=== PATIENT | male | born 1945 | race Caucasian/White ===

== ENCOUNTER 2021-12-11 09:30 | Outpatient (CLI) | payer MEDICARE, BC ==
[2021-12-11 10:38] LABS: BASOPHILS % (AUTO) 0.6 % (0-1); EOSINOPHILS # (AUTO) 0.1 X10'3 (0-0.9); EOSINOPHILS % (AUTO) 0.9 % (0-6); HEMATOCRIT 45.2 % (42.0-52.0); LYMPHOCYTES # (AUTO) 1.7 X10'3 (1.1-4.8); LYMPHOCYTES % (AUTO) 26.1 % (21-51); MEAN CORPUSCULAR HEMOGLOBIN 30.6 PG (27.0-31.0); MEAN CORPUSCULAR HGB CONC 33.1 g/dL (33.0-36.5); MEAN CORPUSCULAR VOLUME 92.5 FL (78-98); MEAN PLATELET VOLUME 8.6 FL (7.4-10.4); MONOCYTES # (AUTO) 0.4 X10'3 (0-0.9); MONOCYTES % (AUTO) 6.9 % (2-12); NEUTROPHILS # (AUTO) 4.2 X10'3 (1.8-7.7); NEUTROPHILS % (AUTO) 65.5 % (42-75); PLATELET COUNT 166 X10'3 (140-440); RED BLOOD COUNT 4.89 X10'6 (4.70-6.10); RED CELL DISTRIBUTION WIDTH 14.1 % (11.5-14.5); WHITE BLOOD COUNT 6.3 X10'3 (4.5-11.0)
[2021-12-11 10:40] LABS: APTT 30 SECONDS (22-32)
[2021-12-11 10:42] LABS: ALANINE AMINOTRANSFERASE 40 U/L (12-78); ALBUMIN 4.2 G/DL (3.4-5.0); ALBUMIN/GLOBULIN RATIO 1.2 (1.1-1.5); ALKALINE PHOSPHATASE 76 IU/L (46-116); ANION GAP 5 (8-16); ASPARTATE AMINO TRANSFERASE 27 U/L (10-37); BILIRUBIN,TOTAL 0.4 MG/DL (0.1-1.0); BLOOD UREA NITROGEN 25 MG/DL (7-18); BUN/CREATININE RATIO 25.5 (5.4-32.0); CALCIUM 9.6 MG/DL (8.5-10.1); CHLORIDE 103 MMOL/L (99-107); CREATININE 0.98 MG/DL (0.60-1.10); GLUCOSE 139 MG/DL (70-104); POTASSIUM 4.3 MMOL/L (3.5-5.1); SODIUM 140 MMOL/L (135-145); TOTAL CARBON DIOXIDE 31.7 MMOL/L (24-32); TOTAL PROTEIN 7.8 G/DL (6.4-8.2); eGFR 75 ML/MIN
[2021-12-11] MEDS ORDERED: IODIXANOL 320 MG/ML INFUS..BTL 100ML IV ONE (11:54)
[2021-12-11] MEDS ORDERED: MESSAGE TO NURSING PO NR (12:19)
== END 2021-12-11 23:59 | disposition home or self-care (01) ==
LOC: RAD 09:30
PROVIDERS: ATTEND Internal Medicine Cardiovascular Disease
DX: Z01.818 Encounter for other preprocedural examination (principal); I65.23 Occlusion and stenosis of bilateral carotid arteries; I70.0 Atherosclerosis of aorta; K76.0 Fatty (change of) liver, not elsewhere classified; K57.30 Diverticulosis of large intestine without perforation or abscess without bleeding; N28.1 Cyst of kidney, acquired; K40.20 Bilateral inguinal hernia, without obstruction or gangrene, not specified as recurrent; M47.817 Spondylosis without myelopathy or radiculopathy, lumbosacral region; M43.17 Spondylolisthesis, lumbosacral region; Q25.46 Tortuous aortic arch; I25.10 Atherosclerotic heart disease of native coronary artery without angina pectoris; I35.0 Nonrheumatic aortic (valve) stenosis; Z96.612 Presence of left artificial shoulder joint; Z79.899 Other long term (current) drug therapy
CPT/HCPCS: 36415; 71046; 71275; 74174; 80053; 85025; 85610; 85730; 93880; 94010; 94727; 94729; J3490; Q9967

== ENCOUNTER 2022-01-23 05:18 | Inpatient (IN) | payer MEDICARE, BC ==
[2022-01-20 11:51] LABS: BASOPHILS % (AUTO) 0.4 % (0-1); EOSINOPHILS % (AUTO) 0.6 % (0-6); LYMPHOCYTES # (AUTO) 1.7 X10'3 (1.1-4.8); LYMPHOCYTES % (AUTO) 26.5 % (21-51); MEAN CORPUSCULAR HEMOGLOBIN 31.3 PG (27.0-31.0); MEAN PLATELET VOLUME 8.6 FL (7.4-10.4); MONOCYTES # (AUTO) 0.5 X10'3 (0-0.9); MONOCYTES % (AUTO) 7.6 % (2-12); NEUTROPHILS # (AUTO) 4.1 X10'3 (1.8-7.7); NEUTROPHILS % (AUTO) 64.9 % (42-75); PRE OP HEMATOCRIT 46.9 % (42.0-52.0); PRE OP HEMOGLOBIN 15.9 g/dL (14.0-17.9); PRE OP PLATELET COUNT 186 X10'3 (140-440); RED BLOOD COUNT 5.09 X10'6 (4.70-6.10); RED CELL DISTRIBUTION WIDTH 13.6 % (11.5-14.5)
[2022-01-20 12:01] LABS: CLARITY,URINE SLIGHTLY CLOUDY (Clear); COLOR,URINE YELLOW (Yellow); GLUCOSE, URINE >=1000 mg/dl (Neg); KETONES,URINE NEGATIVE (Neg); LEUKOCYTE ESTERASE ,URINE NEGATIVE (Neg); NITRITES, URINE POSITIVE (Neg); OCCULT BLOOD,URINE NEGATIVE (Neg); PROTEIN,URINE NEGATIVE (Neg); UROBILINOGEN,URINE 0.2 E.U/dL (0.2-1.0)
[2022-01-20 12:03] LABS: UA COLLECTION TYPE NON-SPECIFIED
[2022-01-20 12:05] LABS: PRE OP INR 1.1 INR; PRE OP PROTIME 10.9 SECONDS (9.0-12.0)
[2022-01-20 12:08] LABS: BACTERIA,URINE 4+ /HPF (Neg); RBC,URINE NONE SEEN /HPF (0-2); SQUAMOUS EPITHELIAL CELL,UR NONE SEEN /LPF (FEW); WBC CLUMPS,URINE MODERATE /HPF (NEGATIVE)
[2022-01-20 12:15] LABS: ALBUMIN 4.4 G/DL (3.4-5.0); ALBUMIN/GLOBULIN RATIO 1.2 (1.1-1.5); ALKALINE PHOSPHATASE 67 IU/L (46-116); BLOOD UREA NITROGEN 28 MG/DL (7-18); BUN/CREATININE RATIO 30.1 (5.4-32.0); CALCIUM 9.9 MG/DL (8.5-10.1); CHLORIDE 99 MMOL/L (99-107); CREATININE 0.93 MG/DL (0.60-1.10); HEMOGLOBIN A1C 7.3 % (4.5-6.2); PRE OP ALT 34 U/L (30-65); PRE OP ANION GAP 8 (8-16); PRE OP AST 26 U/L (10-37); PRE OP BILIRUB, TOTAL 0.4 MG/DL (0.0-1.0); PRE OP GLUCOSE 118 MG/DL (70-104); PRE OP POTASSIUM 3.9 MMOL/L (3.4-5.1); PRE OP SODIUM 136 MMOL/L (135-145); TOTAL CARBON DIOXIDE 29.1 MMOL/L (24-32); TOTAL PROTEIN 8.2 G/DL (6.4-8.2); eGFR 79 ML/MIN
[2022-01-23] VITALS (23 sets, daily range): BP systolic 111–145; BP diastolic 43–82
[~2022-01-23] VITALS: Ht 167.6 cm; Wt 74.9 kg
[~2022-01-23 05:18] MED LIST: ASCO-134 PO; BENA10TA74 PO; CANA300T PO; CYAN50003 PO; METF-438 PO; MULT-1085 PO; ROSU40TA PO; UBID300C3 PO; ringers solution, lacted 1,000 ML IV SCH
[2022-01-23] MEDS ORDERED: phenylephrine inj 50 MG in normal saline 250ml IV solN IV SCH (05:30)
[2022-01-23] MEDS ORDERED: ceFAZolin inj. 2,000 MG in dextrose 5%-water 100 ML IV ONE (05:30)
[2022-01-23] MEDS ORDERED: famotidine 20mg tablet PO ONE (05:30)
[2022-01-23] MEDS ORDERED: vancomycin 1,500 MG in NS 300ml IV soln IV ONE (05:30)
[2022-01-23] MEDS ORDERED: aspirin 325mg tablet PO ONE (05:30)
[2022-01-23] MEDS ORDERED: ondansetron/PF 4mg/2ml inj IV PRN ×2 (05:30→08:15)
[2022-01-23] MEDS ORDERED: nitroPRUSSIDE (NIPRIDE) (200MCG/ML) 100ML Drip IV SCH (05:30)
[2022-01-23] MEDS ORDERED: protamine sulfate 10mg/ml inj. ONE (06:19)
[2022-01-23] MEDS ORDERED: LIDOcaine 1% 30ml preserv. free vial ONE (06:33)
[2022-01-23] MEDS ORDERED: iohexol 350MG/ML 100ml bottle IV ONE (06:33)
[2022-01-23] MEDS ORDERED: heparin 1,000 UNITS/NS 500ml 1,500 ML ONE (06:35)
[2022-01-23] MEDS ORDERED: midazolam 1 mg/ML 2ml injection ONE ×2 (06:41→07:47)
[2022-01-23] MEDS ORDERED: fentaNYL/PF 50MCG/1 ML 2ML syringe ONE (06:41)
[2022-01-23] MEDS ORDERED: propofol inj 20 ML IV ONE (08:11)
[2022-01-23] MEDS ORDERED: heparin 1,000unit/ml 10ml vial 10 ML ONE (08:11)
[2022-01-23] MEDS ORDERED: LIDOcaine 1%/PF 5ML 10 MG/ML VIAL ONE (08:11)
[2022-01-23] MEDS ORDERED: glucagon, human recombinant 1mg kit SUBCUT PRN (08:15)
[2022-01-23] MEDS ORDERED: labetalol 20mg/4ml (5mg/ml) syringe IV PRN (08:15)
[2022-01-23] MEDS ORDERED: magnesium 4gm in 100ml NS 100 ML IV PRN (08:15)
[2022-01-23] MEDS: normal saline 1000ml 1,000 ML IV SCH ×2 (08:15→11:32)
[2022-01-23] MEDS ORDERED: magnesium 2GM in 50ml NS 50 ML IV PRN (08:15)
[2022-01-23] MEDS ORDERED: hydrALAZINE 20mg/ml inj. IV PRN (08:15)
[2022-01-23] MEDS ORDERED: potassium Cl 20 mEq SR tablet PO PRN (08:15)
[2022-01-23] MEDS ORDERED: dextrose 50%-water 50ml dispensing syringe IV PRN ×2 (08:15)
[2022-01-23] MEDS ORDERED: pantoprazole 40mg Tablet.DR PO PRN (08:15)
[2022-01-23] MEDS ORDERED: diphenhydrAMINE 25mg capsule PO PRN (08:15)
[2022-01-23] MEDS ORDERED: insulin Lispro (HumaLOG) vial - multi-dose SQ SCH (08:15)
[2022-01-23] MEDS ORDERED: docusate sod 100mg capsule PO PRN (08:15)
[2022-01-23] MEDS ORDERED: potassium Cl 40MEQ/270ML bag 250 ML IV PRN (08:15)
[2022-01-23] MEDS ORDERED: potassium Cl 40MEQ/1/2NS 520ml 520 ML IV PRN (08:15)
[2022-01-23] MEDS ORDERED: acetaminophen 325mg tablet PO PRN (08:15)
[2022-01-23] MEDS ORDERED: MESSAGE TO PHARMACY PO ONE (08:15)
[2022-01-23] MEDS ORDERED: DEXTROSE 15 GM of carb/4 tabs (each vial/BOTTLE has 4 tablets) PO PRN ×2 (08:15)
[2022-01-23] MEDS ORDERED: proCHLORperazine 10 MG/2 ml inj IV PRN (08:15)
[2022-01-23] MEDS ORDERED: ALPRAZolam 0.25mg tablet PO PRN (08:15)
[2022-01-23] MEDS ORDERED: potassium Cl 20mEq/100mL bag 100 ML IV PRN (08:15)
[2022-01-23] MEDS ORDERED: potassium CL 10mEq/100ml bag 100 ML IV PRN (08:15)
--- NOTE | 2022-01-23 08:19 | NUR ---
Received from OR via , accompanied by Anesthesiologist WES AND OR NURSE and report given by Anesthesiolgist. PT IS A/O X4, DENIES PAIN OR DISCOMFORT. BILATERAL GROIN DRESSINGS/CDI. DISTAL PULSES WNL. ART LINE TO LEFT WRIST; ZEROED. VITALS WNL. Addendum: 01/23/22 at 0849 by Rohini Alarcon RN Amended: Links added.
--- NOTE | 2022-01-23 10:04 | NUR ---
Patient in room PCU 3024. I have received report from Mavis MURPHY and had the opportunity to ask questions and assume patient care. Will follow care of Pt with ALBERT PEARCE. Pt settled into room. [facility] drsg CDI. Addendum: 01/23/22 at 1022 by Diamante Sommer RN Amended: Links added.
--- NOTE | 2022-01-23 10:09 | NUR ---
Report called to receiving nurse. Transferred via BED ON PACY MONITOR TO PCU WITH ONE BAG OF Belongings . NURSE AT BEDSIDE TO RECIEVE PT. PT DENIES PAIN OR DISCOMFORT. ART LINE D/C WITHOUT COMPLICATION. VSS Special Issues communicated to receiving nurse. Addendum: 01/23/22 at 1304 by Rohini Alarcon RN Amended: Links added.
--- NOTE | 2022-01-23 10:22 | NUR ---
Pt arrived to unit. 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 Denies pain. no distress. Groin acces sites x 2 L/R CDI. No bleeding. No hematomas. No flank pain. Pedal pulses palbable x 2. BUE palpable pulses x 2. hands are cool. Warm blankets provided. 129/72, hr 62, RR 18, afebrile, [id number]%. urinal provided. pt has cellphone, director [employer], incentive spirometer, and clothings bag. Addendum: 01/23/22 at 1032 by Cesar Urena LVN Amended: Links added.
[2022-01-23] MEDS ORDERED: insulin regular, human U-100 3ml vial - multi-dose SQ SCH (10:40)
[2022-01-23] MEDS ORDERED: CANA300T PO (10:48)
[2022-01-23] MEDS ORDERED: METF-438 PO (10:48)
[2022-01-23] MEDS ORDERED: ASPI-1265 PO (12:20)
--- NOTE | 2022-01-23 14:20 | NUR ---
Pt able to tolerate reverse trendleberg -8 degrees. At approximately 1420hrs, Pt has half a quarter size sanguineous drainage noted. sand bag applied. reduced degrees to -4.
--- NOTE | 2022-01-23 15:05 | NUR ---
Pt drainage increased 2cm diameter from previous drainage. Marked. additional sand bag applied. decreased position to lying Addendum: 01/23/22 at 1506 by Cesar Urena LVN Decreased position to lying flat. Pt has no pain at this time.
[2022-01-23] MEDS: ceFAZolin 1GM/D5W- ADD-VANTAGE 50 ML IV SCH ×2 (15:24→23:19)
[2022-01-23] MEDS: sod chloride 0.9% 10ml flush syringe IV SCH ×2 (16:02→23:19)
--- NOTE | 2022-01-23 17:34 | NUR ---
Pt drainage is minimal. marked with marker. Advanced patient HOB reverse trendlenberg -4 degrees with HOB 15degrees
--- NOTE | 2022-01-23 18:25 | NUR ---
I have reviewed and agree with all interventions, assessments performed and documented by Cesar PEARCE. Bedside report completed. Pt waiting for dinner. Family at bedside. Addendum: 01/23/22 at 1829 by Diamante Sommer RN Amended: Links added.
--- NOTE | 2022-01-23 18:40 | NUR ---
Problems reprioritized. Patient report given, questions answered & plan of care reviewed with Pooja MURPHY. Bedside report given. Call light within reach. L/R groin access site reviewed. Addendum: 01/23/22 at 1841 by Cesar Urena LVN Amended: Links added.
[2022-01-23] MEDS: vancomycin/NS 1 GM ADD-VANTAGE 250 ML IV SCH (20:26)
[2022-01-23] MEDS ORDERED: cyanocobalamin 500mcg tablet PO SCH (21:00)
[2022-01-23] MEDS ORDERED: insulin glargine (Lantus) pen - multi-dose SQ SCH (21:00)
[2022-01-23] MEDS ORDERED: lisinopril 10 MG tablet PO SCH (21:00)
[2022-01-23] MEDS ORDERED: non-formulary drug (Ubidecarenone (Co Q-10) 1 CAP) PO SCH (21:00)
[2022-01-23] MEDS ORDERED: atorvastatin 20mg tablet PO SCH (21:00)
[2022-01-24 02:12] VITALS: BP 119/62
[2022-01-24] MEDS: normal saline 1000ml 1,000 ML IV SCH (04:15)
--- NOTE | 2022-01-24 06:10 | NUR ---
reported to day RN. same as yesterday nurse. noted pt wants to go home early this am
--- NOTE | 2022-01-24 06:18 | NUR ---
Patient in room PCU 3024. I have received report from Pooja MURPHY and had the opportunity to ask questions and assume patient care. Bedside report completed. Will follow care of PT with eCsar PEARCE. Addendum: 01/24/22 at 0619 by Diamante Sommer RN Amended: Links added.
--- NOTE | 2022-01-24 06:42 | NUR ---
Patient in room PCU 3024. I have received report from Roberto MURPHY and had the opportunity to ask questions and assume patient care. Bedside report given. Patient awake asking when he is able to go home. Patient educated on 3 procedures CXR, Echocardiogram, EKG to be performed prior to discharge. He verbalized understanding. Patient bilateral groin site have no active bleeding. Left groin site CDI. Right groin site has dried serosanguineous drainage noted. No hematoma noted. Call light nina bautista. Addendum: 01/24/22 at 0645 by Cesar Urena LVN Amended: Links added.
[2022-01-24] MEDS: ceFAZolin 1GM/D5W- ADD-VANTAGE 50 ML IV SCH (07:14)
[2022-01-24] MEDS: vancomycin/NS 1 GM ADD-VANTAGE 250 ML IV SCH (07:14)
[2022-01-24 07:25] VITALS: BP 126/57
[2022-01-24] MEDS ORDERED: multivitamins, therapeutics tablet PO SCH (08:00)
[2022-01-24] MEDS ORDERED: ascorbic acid 500mg tablet PO SCH (08:00)
[2022-01-24 08:06] LABS: BASOPHILS % (AUTO) 0.6 % (0-1); EOSINOPHILS % (AUTO) 0.6 % (0-6); HEMATOCRIT 41.9 % (42.0-52.0); HEMOGLOBIN 14.2 g/dl (14.0-17.9); LYMPHOCYTES # (AUTO) 1.6 X10'3 (1.1-4.8); LYMPHOCYTES % (AUTO) 19.7 % (21-51); MEAN CORPUSCULAR HGB CONC 33.9 g/dL (33.0-36.5); MEAN CORPUSCULAR VOLUME 91.4 FL (78-98); MEAN PLATELET VOLUME 8.1 FL (7.4-10.4); MONOCYTES # (AUTO) 0.7 X10'3 (0-0.9); MONOCYTES % (AUTO) 8.7 % (2-12); NEUTROPHILS # (AUTO) 5.6 X10'3 (1.8-7.7); NEUTROPHILS % (AUTO) 70.4 % (42-75); PLATELET COUNT 142 X10'3 (140-440); RED BLOOD COUNT 4.58 X10'6 (4.70-6.10); RED CELL DISTRIBUTION WIDTH 13.8 % (11.5-14.5)
[2022-01-24] MEDS ORDERED: aspirin 81mg tab.chew PO SCH (08:30)
[2022-01-24 08:34] LABS: ALANINE AMINOTRANSFERASE 21 U/L (12-78); ALBUMIN 3.6 G/DL (3.4-5.0); ALBUMIN/GLOBULIN RATIO 1.1 (1.1-1.5); ALKALINE PHOSPHATASE 66 IU/L (46-116); ANION GAP 11 (8-16); ASPARTATE AMINO TRANSFERASE 20 U/L (10-37); BILIRUBIN,TOTAL 0.4 MG/DL (0.1-1.0); BLOOD UREA NITROGEN 20 MG/DL (7-18); BUN/CREATININE RATIO 23.8 (5.4-32.0); CALCIUM 8.9 MG/DL (8.5-10.1); CHLORIDE 103 MMOL/L (99-107); CREATININE 0.84 MG/DL (0.60-1.10); GLUCOSE 120 MG/DL (70-104); MAGNESIUM 1.7 MG/DL (1.5-2.4); POTASSIUM 3.9 MMOL/L (3.5-5.1); SODIUM 139 MMOL/L (135-145); TOTAL CARBON DIOXIDE 25.3 MMOL/L (24-32); eGFR 89 ML/MIN
[2022-01-24] MEDS: sod chloride 0.9% 10ml flush syringe IV SCH (08:40)
[2022-01-24 11:25] VITALS: BP 132/67
--- NOTE | 2022-01-24 15:14 | NUR ---
All verbal and written instructions provided to patient. All questions answered. PIV discontinued. R groin site redressed. scant bleeding noted when changing dressings. Pt will be picking up aspirin at [facility]. Phone, supervisor education, and clothing on patient. Patient verbalized importance of TAVR aftercare as per written/verbal instruction. He verbalized understanding. Pt left facility in wheelchair in personal vehicle of his daughter. Addendum: 01/24/22 at 1517 by Cesar Urena LVN Amended: Links added.
--- NOTE | 2022-01-24 15:29 | NUR ---
I have reviewed and agree with all interventions, assessments performed and documented by Cesar PEARCE.
== END 2022-01-24 13:48 | disposition home or self-care (01) | DRG 267 ==
LOC: PAS IN 05:18 → PCU 3S 10:09
PROVIDERS: ADMIT Internal Medicine Cardiovascular Disease; ATTEND Internal Medicine Cardiovascular Disease
PROC: B41D1ZZ Fluoroscopy of Aorta and Bilateral Lower Extremity Arteries using Low Osmolar Contrast (ICD-10-PCS; 2022-01-23)
PROC: 02RF38Z Replacement of Aortic Valve with Zooplastic Tissue, Percutaneous Approach (ICD-10-PCS; principal; 2022-01-23 07:02)
DX: I35.0 Nonrheumatic aortic (valve) stenosis (principal); Z00.6 Encounter for examination for normal comparison and control in clinical research program; E11.9 Type 2 diabetes mellitus without complications; E78.5 Hyperlipidemia, unspecified; I10 Essential (primary) hypertension; I25.10 Atherosclerotic heart disease of native coronary artery without angina pectoris
CPT/HCPCS: 33361; 36415; 71045; 71046; 76937; 80053; 81001; 82948; 83036; 83735; 83880; 85025; 85347; 85610; 85730; 86885; 86900; 86901; 86920; 87077; 87081; 87088; 87186; 93005; 93308; A4618; A6258; A6402; A6449; C1756; C1760; C1769; C1894; G0378; J0690; J1644; J1815; J2250; J2370; J2704; J2720; J3010; J3370; J3490; J7030; J7040; J7050; J7060; J7120; Q9967